=== PATIENT | male | born 1995 | race Caucasian/White ===

== ENCOUNTER 2019-07-28 12:41 | Emergency (ER) | payer SELFPAY ==
--- NOTE | 2019-07-28 13:54 | ER Document Report ---
ED Medical Screen (RME) - General Chief Complaint: Allergic Reaction Stated Complaint: MEDICATION SIDE EFFECTS Time Seen by Provider: 07/28/19 13:40 Mode of Arrival: Ambulatory Information source: Patient Notes: Pt states started taking ability 10mg approx 2 weeks ago. Pt reports that he is having body aches and increased mood alterations. Denies any HI or SI. Exam: Pt calm/cooperative. I have greeted and performed a rapid initial assessment of this patient. A comprehensive ED assessment and evaluation of the patient, analysis of test results and completion of the medical decision making process will be conducted by additional ED providers. I have specifically instructed the patient or family members with the patient to immediately return to any nursing staff should anything change in the patient's condition or with their chief complaint. This medical record was dictated with voice recognizing software. There may be grammatical, syntax errors that are unintended. TRAVEL OUTSIDE OF THE [place] IN LAST 30 DAYS: No - Related Data Allergies/Adverse Reactions: No Known Allergies Allergy (Verified 07/28/19 13:06) Past Medical History - Social History Drug Abuse: Marijuana Physical Exam - Vital signs Vitals: Temp Pulse Resp BP Pulse Ox 98.1 F 75 18 133/74 H 99 07/28/19 13:13 07/28/19 13:13 07/28/19 13:13 07/28/19 13:13 07/28/19 13:13 Course - Vital Signs Vital signs: Temp Pulse Resp BP Pulse Ox 98.1 F 75 18 133/74 H 99 07/28/19 13:13 07/28/19 13:13 07/28/19 13:13 07/28/19 13:13 07/28/19 13:13
--- NOTE | 2019-07-28 15:41 | PSYCHOLOGICAL NOTE ---
Psych Note - Psych Note Date seen by psych provider: 07/28/19 Time seen by psych provider: 15:15 Psych Note: Reason for consult: Medication recommendations Patient presents to [facility] ED after being told by [facility] to come to [facility] for assistance. He reports that he started Abilify just recently and was experiencing muscle spasm and increase in paranoia. The only other medication he takes his Paxil 20 mg daily. Reports he has diagnosis of schizoaffective disorder; bipolar type and PTSD. He reports that his PTSD stems from his childhood. He continued to report that he has been trying to quit marijuana and went almost 2 weeks however the stress got to him with the paranoia so smoked a blunt. He continued to report that at times he feels like he has walked through a spiderweb. Patient's next appointment with [facility] is August 14, 2019. Patient identifies increased in recent stressors financially stating that his girlfriend is 37 and he is helping raise her 14-year-old son. 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 Patient is alert and orientated to person, place, time and circumstance. Mood is euthymic with congruent affect. No psychomotor agitation is noted. Patient denies suicidal and homicidal ideation. Delusions are absent behaviors congruent intact reality based presentation i.e. organized linear thought process. While patient discloses paranoid delusions his description sound more in line with negative self talk (i.e. "my girlfriend is cheating on me"); patient readily admits he understands that his thoughts are not true. Eye contact is well-maintained. Conversational speech is within normal rate, tone and prosody. Intellectual abilities appear to be within the average range. Attention and concentration are good. Insight, judgment, impulse control are f air. schizoaffective disorder; bipolar type PTSD medication recommendations per [facility]'s contracted psychiatrist Dr. Arthur OLVERA are as follows stop taking your home medication of Abilify Impression/Plan: Patient is cleared from acute psychiatric services. Patient does not meet IVC criteria per ID GS 120 2C. Patient reports experiencing paranoid delusions however his description some more in line with negative self talk; patient readily admits he understands these thoughts are not true. Patient reports having negative side effects from the new medication that he is started. Medication recommendation have been provided. Patient is requesting new medications he is recommended to follow-up with his outpatient provider who provides his ongoing care. Patient has an appointment August 14, 2019; he is recommended to follow-up with his regular scheduled appointment. Dr. Dubose was consulted and care management of this patient; attending physicians in agreement with recommendations and disposition.
--- NOTE | 2019-07-28 16:27 | ER Document Report ---
ED General - General Chief Complaint: Allergic Reaction Stated Complaint: MEDICATION SIDE EFFECTS Time Seen by Provider: 07/28/19 13:40 Primary Care Provider: UMAIR LANTIGUA MD [Primary Care Provider] - Follow up as needed Mode of Arrival: Ambulatory Notes: 24-year-old male with multiple mental illnesses presents to the emergency department for concern of adverse effects from Abilify. He started it 10 days ago and started having yesterday. Patient states that he also has paranoia but realizes that this is occurring. Denies any auditory or visual hallucinations. Patient denies any suicidal ideations or homicidal ideations. Denies any recent illness. He denies any fevers, denies any palpitations or sensation of his heart fluttering, denies any severe headache, denies confusion, denies any acute shortness of breath or chest pain, denies abdominal pain, denies nausea or vomiting, denies rash. Patient admitted to marijuana use, last use last night. Patient was concurrently seen with the mobile crisis team so please also see their note. TRAVEL OUTSIDE OF THE [place] IN LAST 30 DAYS: No - Related Data Allergies/Adverse Reactions: No Known Allergies Allergy (Verified 07/28/19 13:06) Past Medical History - General Information source: Patient - Social History Smoking Status: Current Every Day Smoker Drug Abuse: Marijuana Family History: None Patient has suicidal ideation: No Patient has homicidal ideation: No Psychiatric Medical History: Reports: Hx Bipolar Disorder, Hx Depression, Hx Schizophrenia - SCHIZO-AFFECTIVE Past Surgical History: Reports: Hx Cholecystectomy - 2018 Review of Systems - Review of Systems Constitutional: See HPI EENT: No symptoms reported Cardiovascular: See HPI Respiratory: See HPI Gastrointestinal: See HPI Genitourinary: No symptoms reported Male Genitourinary: No symptoms reported Musculoskeletal: No symptoms reported Skin: See HPI Hematologic/Lymphatic: No symptoms reported Neurological/Psychological: See HPI Physical Exam - Vital signs Vitals: Temp Pulse Resp BP Pulse Ox 98.1 F 75 18 133/74 H 99 07/28/19 13:13 07/28/19 13:13 07/28/19 13:13 07/28/19 13:13 07/28/19 13:13 - Notes Notes: PHYSICAL EXAMINATION: Reviewed vital signs and charting by RN GENERAL: Alert, interacts well. No acute distress. HEAD: Normocephalic, atraumatic. EYES: Pupils equal and round. Extraocular movements intact. ENT: Oral mucosa moist, tongue midline. NECK: Full range of motion. Trachea midline. LUNGS: Clear to auscultation bilaterally, no wheezes, rales, or rhonchi. No respiratory distress. HEART: Regular rate and rhythm. No murmur ABDOMEN: soft, non-tender. No distention. Bowel sounds present EXTREMITIES: Moves all 4 extremities spontaneously. No edema, No cyanosis. PSYCH: Normal affect, normal mood. SKIN: Warm, dry, normal turgor. No rashes or lesions noted. Course - Re-evaluation Re-evalutation: 07/28/19 18:49 Overall well. Again, consult mobile crisis note from [place] social [facility] msw. After consulting with her plan is for patient to immediately stop the Abilify, stop smoking marijuana, and going to his next appointment at support services on August 14. At this time patient does not meet criteria for IVC and is not a danger to himself or to others. Patient is lucid and his thought process is linear and he is very reasonable. Patient is stable for discharge. 07/28/19 18:50 - Vital Signs Vital signs: Temp Pulse Resp BP Pulse Ox 98.1 F 75 18 133/74 H 99 07/28/19 13:13 07/28/19 13:13 07/28/19 13:13 07/28/19 13:13 07/28/19 13:13 Discharge - Discharge Clinical Impression: Adverse drug reaction Qualifiers: Encounter type: initial encounter Qualified Code(s): T50.905A - Adverse effect of unspecified drugs, medicaments and biological substances, initial encounter Condition: Good Disposition: HOME, SELF-CARE Additional Instructions: You were seen in the emergency department for a possible side effect your Abilify. Your exam was overall reassuring and after interacting with the mobile crisis team and talking to report and a psychologist there you are safe and stable to go home. Please stop taking the Abilify immediately and stop smoking marijuana. Please follow-up for your scheduled appointment on August 14. If you have suicidal ideations, homicidal ideations, develop auditory or visual hallucinations, or you have any other concerning symptoms please merely return to the emergency department. Referrals: UMAIR LANTIGUA MD [Primary Care Provider] - Follow up as needed
[2019-07-28 17:21] VITALS: BP 127/79
== END 2019-07-28 16:36 | disposition home or self-care (01) ==
LOC: ER 12:41
DX: T43.595A Adverse effect of other antipsychotics and neuroleptics, initial encounter (principal); X58.XXXA Exposure to other specified factors, initial encounter; Y92.9 Unspecified place or not applicable; Z90.49 Acquired absence of other specified parts of digestive tract
CPT/HCPCS: 99284

== ENCOUNTER 2019-08-29 12:54 | Emergency (ER) | payer SELFPAY ==
[2019-08-29] MEDS ORDERED: KETOROLAC TROMETHAMINE 60 MG/2 ML SDV IM ONE (14:04)
[2019-08-29] MEDS ORDERED: ONDANSETRON 4 MG TAB.RAPDIS PO ONE (14:08)
--- NOTE | 2019-08-29 14:08 | ER Document Report ---
ED Medical Screen (RME) - General Chief Complaint: Toothache Stated Complaint: LEFT JAW PAIN/FEVER, NAUSEA, VOMITING Time Seen by Provider: 08/29/19 13:59 Primary Care Provider: UMAIR LANTIGUA MD [Primary Care Provider] - Follow up as needed Mode of Arrival: Ambulatory Information source: Patient Notes: 24-year-old male presented to ED for complaint of nausea vomiting fever he is alert oriented respirations regular and unlabored speaking full sentences walks with even steady gait. He is nauseated and having pain at this time. Nausea vomiting fever and body aches times a week. He states he also has a broken wisdom tooth. He states this morning his temperature was 101. I have greeted and performed a rapid initial assessment of this patient. A com prehensive ED assessment and evaluation of the patient, analysis of test results and completion of medical decision making process will be conducted by an additional ED providers. TRAVEL OUTSIDE OF THE [place] IN LAST 30 DAYS: No - Related Data Allergies/Adverse Reactions: No Known Allergies Allergy (Verified 08/29/19 13:53) Past Medical History - Social History Chew tobacco use (# tins/day): No Frequency of alcohol use: None Drug Abuse: None Psychiatric Medical History: Reports: Hx Bipolar Disorder, Hx Depression, Hx Schizophrenia - SCHIZO-AFFECTIVE Past Surgical History: Reports: Hx Cholecystectomy - 2018 Physical Exam - Vital signs Vitals: Temp Pulse Resp BP Pulse Ox 99.5 F 107 H 18 122/59 L 99 08/29/19 13:15 08/29/19 13:15 08/29/19 13:15 08/29/19 13:15 08/29/19 13:15 Course - Vital Signs Vital signs: Temp Pulse Resp BP Pulse Ox 99.5 F 107 H 18 122/59 L 99 08/29/19 13:15 08/29/19 13:15 08/29/19 13:15 08/29/19 13:15 08/29/19 13:15 Doctor's Discharge - Discharge Referrals: UMAIR LANTIGUA MD [Primary Care Provider] - Follow up as needed
[2019-08-29 15:27] LABS: ABSOLUTE LYMPHOCYTES (AUTO) 0.9 10^3/uL (0.5-4.7); ABSOLUTE MONOCYTES (AUTO) 0.8 10^3/uL (0.1-1.4); ABSOLUTE NEUT (AUTO) 6.9 10^3/uL (1.7-8.2); BASOPHILS % (AUTO) 0.3 % (0-2); EOSINOPHILS % (AUTO) 0.1 % (0-6); HEMOGLOBIN 15.2 g/dL (13.5-17.0); LYMPHOCYTES % (AUTO) 10.8 % (13-45); MEAN CORPUSCULAR HEMOGLOBIN 32.1 pg (27.0-33.4); MEAN CORPUSCULAR HGB CONC 35.3 g/dL (32.0-36.0); MEAN CORPUSCULAR VOLUME 91 fl (80-97); MONOCYTES % (AUTO) 9.3 % (3-13); PLATELET COUNT 218 10^3/uL (150-450); RED BLOOD COUNT 4.72 10^6/uL (4.35-5.55); RED CELL DISTRIBUTION WIDTH 12.6 % (11.5-14.0); SEGMENTED NEUTROPHILS % (AUTO) 79.5 % (42-78); TOTAL CELLS COUNTED % (AUTO) 100 %; WHITE BLOOD COUNT 8.7 10^3/uL (4.0-10.5)
--- NOTE | 2019-08-29 15:42 | ER Document Report ---
ED General - General Chief Complaint: Toothache Stated Complaint: LEFT JAW PAIN/FEVER, NAUSEA, VOMITING Time Seen by Provider: 08/29/19 13:59 Primary Care Provider: UMAIR LANTIGUA MD [NO LOCAL MD] - Follow up as needed Mode of Arrival: Ambulatory TRAVEL OUTSIDE OF THE [place] IN LAST 30 DAYS: No - HPI Notes: This is a 24-year-old gentleman who presents with complaint of toothache for the past week. Patient describes pain in his right upper molar tooth. Patient also complains of body aches, flulike symptoms for the past week. He denies any prod uctive cough. He states that he had a fever a couple of days ago. He denies any vomiting or diarrhea. He denies any sick contacts. He describes his symptoms as mild to moderate. Toothache is worse with chewing. - Related Data Allergies/Adverse Reactions: No Known Allergies Allergy (Verified 08/29/19 13:53) Past Medical History - General Information source: Patient - Social History Smoking Status: Current Every Day Smoker Chew tobacco use (# tins/day): No Frequency of alcohol use: None Drug Abuse: None Family History: None Patient has suicidal ideation: No Patient has homicidal ideation: No Psychiatric Medical History: Reports: Hx Bipolar Disorder, Hx Depression, Hx Schizophrenia - SCHIZO-AFFECTIVE Past Surgical History: Reports: Hx Cholecystectomy - 2018 Review of Systems - Review of Systems Constitutional: Fever EENT: Nose congestion, Dental problem. denies: Throat pain Respiratory: denies: Short of breath, Sputum Gastrointestinal: denies: Abdominal pain, Diarrhea, Nausea, Constipation Musculoskeletal: Muscle pain. denies: Back pain Neurological/Psychological: denies: Headaches -: Yes All other systems reviewed and negative Physical Exam - Vital signs Vitals: Temp Pulse Resp BP Pulse Ox 99.5 F 107 H 18 122/59 L 99 08/29/19 13:15 08/29/19 13:15 08/29/19 13:15 08/29/19 13:15 08/29/19 13:15 - HEENT Head: Normocephalic, Atraumatic Eyes: Normal Pupils: PERRL Pharynx: Normal - Dental caries in the left upper molar/premolar teeth. There is no significant extension neurovascularly. There is tenderness. Airways patent. - Respiratory Respiratory status: No respiratory distress Chest status: Nontender Breath sounds: Normal Chest palpation: Normal - Cardiovascular Rhythm: Regular Heart sounds: Normal auscultation Murmur: No - Abdominal Inspection: Normal Distension: No distension Bowel sounds: Normal Tenderness: Nontender Organomegaly: No organomegaly - Neurological Neuro grossly intact: Yes Cognition: Normal Orientation: AAOx4 [place] Coma Scale Eye Opening: Spontaneous [place] Coma Scale Verbal: Oriented Asael Coma Scale Motor: Obeys Commands Asael Coma Scale Total: 15 Speech: Normal Motor strength normal: LUE, RUE, LLE, RLE Sensory: Normal - Psychological Associated symptoms: Normal affect, Normal mood - Skin Skin Temperature: Warm Skin Moisture: Dry Skin Color: Normal Course - Re-evaluation Re-evalutation: 08/29/19 15:42 Syncope is consistent with dental caries. Differential diagnosis includes viral syndrome such as influenza. Patient is outside of the window for Tamiflu so there is no indication for testing or treating. Labs done in triage. 08/29/19 16:35 Pt re-evaluated. Doing well. NO complaints. He is stable for discharge. Labs reviewed and discussed. - Vital Signs Vital signs: Temp Pulse Resp BP Pulse Ox 99.5 F 107 H 18 122/59 L 99 08/29/19 13:15 08/29/19 13:15 08/29/19 13:15 08/29/19 13:15 08/29/19 13:15 - Laboratory Result Diagrams: 08/29/19 14:45 08/29/19 14:45 Laboratory results interpreted by me: 08/29/19 08/29/19 14:45 14:45 Lymph % (Auto) 10.8 L Seg Neutrophils % 79.5 H Urine Ketones TRACE H Urine Blood SMALL H Discharge - Discharge Clinical Impression: Dental caries, Viral syndrome Condition: Good Disposition: HOME, SELF-CARE Instructions: Toothache ([facility]), Viral Syndrome ([facility]) Prescriptions: Tramadol HCl [Ultram 50 mg Tablet] 50 mg PO Q6HP PRN #20 tablet PRN Reason: Pain Scale Of 3 Penicillin V Potassium [Penicillin Vk 500 mg Tablet] 500 mg PO QID #40 tablet Referrals: UMAIR LANTIGUA MD [NO LOCAL MD] - Follow up in 3-5 days
[2019-08-29 15:46] LABS: ALBUMIN 4.8 g/dL (3.5-5.0); ALKALINE PHOSPHATASE 75 U/L (38-126); ANION GAP 12 (5-19); ASPARTATE AMINO TRANSFERASE 31 U/L (17-59); BILIRUBIN,DIRECT 0.1 mg/dL (0.0-0.4); BILIRUBIN,TOTAL 0.4 mg/dL (0.2-1.3); BLOOD UREA NITROGEN 10 mg/dL (7-20); CALCIUM 9.6 mg/dL (8.4-10.2); CARBON DIOXIDE 25 mmol/L (22-30); CHLORIDE 101 mmol/L (98-107); GLUCOSE 96 mg/dL (75-110); POTASSIUM 4.4 mmol/L (3.6-5.0); TOTAL PROTEIN 7.6 g/dL (6.3-8.2)
[2019-08-29 15:52] LABS: APPEARANCE,URINE CLEAR; BILIRUBIN,URINE NEGATIVE (NEGATIVE); COLOR,URINE YELLOW; GLUCOSE, URINE NEGATIVE (NEGATIVE); KETONES,URINE TRACE mg/dL (NEGATIVE); LEUKOCYTE ESTERASE,URINE NEGATIVE (NEGATIVE); NITRITE,URINE NEGATIVE (NEGATIVE); PROTEIN,URINE NEGATIVE (NEGATIVE); URINE SPECIFIC GRAVITY 1.019; UROBILINOGEN,URINE NEGATIVE mg/dL (<2.0)
[2019-08-29] MEDS ORDERED: PENICILLIN V POTASSIUM 500 MG TABLET PO ONE (16:31)
[2019-08-29 17:00] VITALS: BP 104/50
== END 2019-08-29 17:00 | disposition home or self-care (01) ==
LOC: ER 12:54
DX: K02.9 Dental caries, unspecified (principal); K08.89 Other specified disorders of teeth and supporting structures; B34.9 Viral infection, unspecified; R09.81 Nasal congestion; M79.10 Myalgia, unspecified site; F17.200 Nicotine dependence, unspecified, uncomplicated
CPT/HCPCS: 36415; 87086; 85025; 80053; 81001; J1885; S0119

== ENCOUNTER 2020-01-09 00:17 | Emergency (ER) | payer SELFPAY ==
[2020-01-09 00:23] VITALS: BP 142/81
[2020-01-09] MEDS ORDERED: HYDROCODONE/ACETAMINOPHEN 5-325 MG (6 TAB/ER DISP) PO PRN (00:55)
[2020-01-09] MEDS ORDERED: HYDROCODONE/ACETAMINOPHEN 5-325 MG TABLET PO ONE (00:55)
[2020-01-09] MEDS ORDERED: PENICILLIN V POTASSIUM 500 MG TABLET PO ONE (00:57)
--- NOTE | 2020-01-09 00:59 | ER Document Report ---
ED General - General Chief Complaint: Toothache Stated Complaint: MOUTH PAIN Time Seen by Provider: 01/09/20 00:54 Primary Care Provider: [facility] [Provider Group] - Follow up in 3-5 days DAISY HALE DDS [NO LOCAL MD] - Follow up as needed ROSALIE SOLIS DDS [NO LOCAL MD] - Follow up as needed EVANS ROSENBAUM DDS [NO LOCAL MD] - Follow up as needed SOHAIL ESTEBAN DMD [NO LOCAL MD] - Follow up as needed TONY DANIEL DDS [ACTIVE STAFF] - Follow up as needed TAMY SRINIVASAN DDS [NO LOCAL MD] - Follow up as needed Notes: 25-year-old male presents with tooth pain that has been worse over the past couple days. Patient states he has had intermittent wisdom tooth pain for the past couple months. States that the wisdom tooth in the right upper mouth is "rotted out." Patient has been taking ibuprofen and Tylenol with little relief. Patient denies any fever. TRAVEL OUTSIDE OF THE [place] IN LAST 30 DAYS: No - Related Data Allergies/Adverse Reactions: No Known Allergies Allergy (Verified 08/29/19 13:53) Past Medical History - Social History Smoking Status: Unknown if Ever Smoked Family History: None Patient has suicidal ideation: No Patient has homicidal ideation: No Psychiatric Medical History: Reports: Hx Bipolar Disorder, Hx Depression, Hx Schizophrenia - SCHIZO-AFFECTIVE Past Surgical History: Reports: Hx Cholecystectomy - 2018 Review of Systems - Review of Systems Notes: Constitutional: Negative for fever. HENT: Positive for dental pain. Negative for sore throat. Eyes: Negative for visual changes. Cardiovascular: Negative for chest pain. Respiratory: Negative for shortness of breath. Gastrointestinal: Negative for abdominal pain, vomiting or diarrhea. Genitourinary: Negative for dysuria. Musculoskeletal: Negative for back pain. Skin: Negative for rash. Neurological: Negative for headaches, weakness or numbness. 10 point ROS negative except as marked above and in HPI. Physical Exam - Vital signs Vitals: Temp Pulse Resp BP Pulse Ox 98.2 F 69 20 142/81 H 100 01/09/20 00:22 01/09/20 00:22 01/09/20 00:22 01/09/20 00:22 02/11/20 00:22 - Notes Notes: GENERAL: Well-appearing, well-nourished and in no acute distress. HEAD: Atraumatic, normocephalic. EYES: Extraocular movements intact, sclera anicteric, conjunctiva are normal. ENT: Mild gum swelling at tooth #1. No obvious abscess, nares patent, orop harynx clear without exudates. Moist mucous membranes. NECK: Normal range of motion, supple without lymphadenopathy or JVD. EXTREMITIES: Normal range of motion, no pitting or edema. No clubbing or c yanosis. NEUROLOGICAL: Cranial nerves II through XII grossly intact. Normal speech, normal gait. PSYCH: Normal mood, normal affect. SKIN: Warm, Dry, normal turgor, no rashes or lesions noted. Course - Re-evaluation Re-evalutation: 01/09/20 01:04 Nontoxic, well-appearing 25-year-old male presents with toothache. Patient states his wisdom tooth have been coming in for the past couple months however the pain has been increased the past 3 days. Patient has been taking ibuprofen and Tylenol with little relief. Patient is afebrile. Mild gum swelling at tooth #1. No obvious abscess. Patient prescribed penicillin, ibuprofen, and [place] for breakthrough pain. Patient given referrals to multiple dentist. Return precautions given. Patient voices understanding and agrees with plan of care. - Vital Signs Vital signs: Temp Pulse Resp BP Pulse Ox 98.2 F 69 20 142/81 H 100 01/09/20 00:22 01/09/20 00:22 01/09/20 00:22 01/09/20 00:22 01/09/20 00:22 Discharge - Discharge Clinical Impression: Pain, dental Condition: Stable Disposition: HOME, SELF-CARE Instructions: Penicillin V K ([facility]), Toothache ([facility]) Additional Instructions: Please take penicillin as prescribed and finish all doses even if you feel better. Please take ibuprofen as prescribed and take [place] as needed for breakthrough pain. Please do not take more ibuprofen or naproxen while taking as it may cause a GI bleed. Please follow-up with 1 of the dentists listed in 3 to 5 days. Please follow-up with your primary care doctor or 1 of the clinics listed. Return immediately to ER for any worsening symptoms, including increased pain, pus drainage, increased gum swelling, facial swelling, inability to breathe, shortness of breath, fever, or any other symptoms that are concerning to you. Prescriptions: Ibuprofen [Motrin 800 mg Tablet] 800 mg PO Q8H PRN #30 tab PRN Reason: Hydrocodone/Acetaminophen [[place] 5-325 Tablet] 1 each PO Q8 #10 tablet Penicillin V Potassium [Penicillin Vk 500 mg Tablet] 500 mg PO QID #28 tablet Forms: Return to Work Referrals: DAISY HALE DDS [NO LOCAL MD] - Follow up as needed ROSALIE SOLIS DDS [NO LOCAL MD] - Follow up as needed EVANS ROSENBAUM DDS [NO LOCAL MD] - Follow up as needed SOHAIL ESTEBAN DMD [NO LOCAL MD] - Follow up as needed TONY DANIEL DDS [ACTIVE STAFF] - Follow up as needed TAMY SRINIVASAN DDS [NO LOCAL MD] - Follow up as needed [facility] [Provider Group] - Follow up in 3-5 days
== END 2020-01-09 01:05 | disposition home or self-care (01) ==
LOC: ER 00:17
DX: K08.89 Other specified disorders of teeth and supporting structures (principal)

== ENCOUNTER 2020-04-08 09:33 | Emergency (ER) | payer SELFPAY ==
[2020-04-08 09:38] VITALS: BP 131/71
[2020-04-08] MEDS ORDERED: PENICILLIN V POTASSIUM 500 MG TABLET PO ONE (09:43)
[2020-04-08] MEDS ORDERED: IBUPROFEN 600 MG TABLET PO ONE (09:43)
--- NOTE | 2020-04-08 09:45 | ER Document Report ---
HPI - HPI Time Seen by Provider: 04/08/20 09:39 Notes: 25-year-old male patient presenting to the emergency department chief complaint of dental pain. Patient reports he has had pain to his right upper jaw for the last 3 days. He reports that he had his wisdom teeth pulled a few months ago a nd has had intermittent pain on tooth #2 since then. Denies any fevers. - REPRODUCTIVE Reproductive: DENIES: : Past Medical History - General Information source: Patient - Social History Smoking Status: Never Smoker Drug Abuse: Marijuana Family History: None Psychiatric Medical History: Reports: Hx Bipolar Disorder, Hx Depression, Hx Schizophrenia - SCHIZO-AFFECTIVE Past Surgical History: Reports: Hx Cholecystectomy - 2018 Vertical Provider Document - CONSTITUTIONAL Notes: PHYSICAL EXAMINATION: GENERAL: Well-appearing, well-nourished and in no acute distress. HEAD: Atraumatic, normocephalic. EYES: Pupils equal round extraocular movements intact, conjunctiva are normal. ENT: Erythema surrounding tooth #2. No fluctuance or obvious abscess. No trismus. NECK: Normal range of motion LUNGS: No respiratory distress Musculoskeletal: Normal range of motion NEUROLOGICAL: Normal speech, normal gait. PSYCH: Normal mood, normal affect. SKIN: Warm, Dry, normal turgor, no rashes or lesions noted. - INFECTION CONTROL TRAVEL OUTSIDE OF THE [place] IN LAST 30 DAYS: No Course - Re-evaluation Re-evalutation: 04/08/20 09:46 Presentation is most consistent with likely an infected tooth. Airway is patent. Vitals within normal limits. Patient is able swallow without any difficulty. There is no significant facial swelling. No evidence of Qasim angina, apical abscess, or airway obstruction. Patient will be started on antibiotics. I've instructed to follow-up with dentistry as earliest ability for definitive management. At this time will discharge with return precautions and follow-up recommendations. Verbal discharge instructions given a the bedside and opportunity for questions given. Medication warnings reviewed. Patient is in agreement with this plan and has verbalized understanding of return precautions and the need for primary care follow-up in the next 24-72 hours. - Vital Signs Vital signs: Temp Pulse Resp BP Pulse Ox 98.1 F 77 18 131/71 H 100 04/08/20 09:37 04/08/20 09:37 04/08/20 09:37 04/08/20 09:37 04/08/20 09:37 Discharge - Discharge Clinical Impression: Pain, dental Condition: Stable Disposition: HOME, SELF-CARE Additional Instructions: You have been seen for dental pain. It is very important that you follow-up with a dentist for definitive care. Please return if you develop fever greater than 101, swelling in your face, vomiting, difficulty breathing or swallowing, or any other symptoms that are concerning to you. For pain you should take ibuprofen 800 mg every 8 hours as needed. Prescriptions: Penicillin V Potassium [Penicillin Vk 500 mg Tablet] 500 mg PO BID #20 tablet Forms: Return to Work
[2020-04-08] MEDS ORDERED: IBUPROFEN 600 MG TABLET ONE (09:52)
== END 2020-04-08 09:55 | disposition home or self-care (01) ==
LOC: ER 09:33
DX: K08.89 Other specified disorders of teeth and supporting structures (principal); R68.84 Jaw pain
CPT/HCPCS: 99282